=== PATIENT | female | born 1955 | race Caucasian/White ===

== ENCOUNTER 2022-09-25 00:55 | Inpatient (IN) | payer BC, OTHER ==
[~2022-09-25] VITALS: Ht 157.5 cm; Wt 64.0 kg
[2022-09-25 03:30] LABS: BASOPHILS % 0.9 % (0.0-2.0); EOSINOPHILS % 2.5 % (0.0-5.0); HEMATOCRIT. 37.1 % (36.0-48.0); HEMOGLOBIN. 11.8 g/dL (12.0-16.0); LYMPHOCYTES % 25.7 % (20.0-50.0); MEAN CORPUSCULAR HEMOGLOBIN 20.6 pg (28.0-32.0); MEAN CORPUSCULAR VOLUME 64.6 fL (81.0-99.0); MEAN PLATELET VOLUME 10.1 fl (7.4-10.4); MONOCYTES % 8.4 % (2.0-8.0); NEUTROPHILS % 62.5 % (40.0-76.0); PLATELET 208 x1000/uL (130-400); RED BLOOD CELL COUNT 5.75 mill/uL (4.2-5.4); RED CELL DISTRIBUTION WIDTH 16.5 % (11.6-14.6)
[2022-09-25 03:34] LABS: CHLORIDE 110 mEq/L (98-107)
[2022-09-25 03:35] LABS: PLATELET ESTIMATE NORMAL
[2022-09-25] MEDS ORDERED: ASPIRIN 325MG EC TABLET PO ONE (04:00)
[2022-09-25] MEDS ORDERED: ACETAMINOPHEN 325MG TABLET PO PRN ×2 (06:00)
[2022-09-25] MEDS ORDERED: ASPIRIN 325MG EC TABLET PO NR (06:00)
[2022-09-25] MEDS ORDERED: ONDANSETRON HCL 4MG/2ML INJ IV PRN (06:00)
[2022-09-25] MEDS ORDERED: IPRATROPIUM/ALBUTEROL 0.5-3(2.5)MG/3ML NEB NEB PRN (06:00)
[2022-09-25] MEDS ORDERED: DOCUSATE SODIUM 100MG CAPSULE PO PRN (06:00)
[2022-09-25] MEDS ORDERED: MAGNESIUM/ALUMINUM HYDROXIDE/SIMETHICONE 30ML UDC PO PRN (06:00)
[2022-09-25] MEDS ORDERED: CLONIDINE 0.1MG TABLET PO PRN (06:00)
[2022-09-25] MEDS ORDERED: NITROGLYCERIN 0.4MG TABLET SL SL PRN (06:15)
[2022-09-25] MEDS: LEVOTHYROXINE SODIUM 50MCG TABLET PO SCH ×2 (06:46→07:50)
[2022-09-25 08:19] LABS: TOTAL IRON BINDING CAPACITY 343 ug/dL (250-450)
[2022-09-25 08:31] LABS: PHOSPHORUS 4.2 mg/dL (2.5-4.9)
[2022-09-25 08:52] LABS: CREATINE KINASE MB FRACTION 1.1 ng/mL (0.5-3.6)
[2022-09-25] MEDS: PANTOPRAZOLE SODIUM 40 MG/VIAL IV SCH (09:00)
[2022-09-25] MEDS: ENOXAPARIN 40MG/0.4ML SYR SUBCUT SCH (09:00)
[2022-09-25] MEDS: AMLODIPINE 5MG TABLET PO SCH (09:00)
[2022-09-25 09:28] LABS: T4 FREE 0.97 ng/dL (0.76-1.46)
[2022-09-25 11:30] VITALS: BP 136/54
[2022-09-25 11:51] LABS: FERRITIN 140 ng/mL (10-291)
[2022-09-25 12:00] VITALS: BP 136/54
[2022-09-25 13:51] LABS: VITAMIN B12 SERUM 446 pg/mL (211-911)
[2022-09-25] MEDS ORDERED: ATOR10TA69 MT (13:59)
[2022-09-25] MEDS ORDERED: LEVO50TA8 MT (13:59)
[2022-09-25 16:00] VITALS: BP 117/59
[2022-09-25 17:17] LABS: CREATINE KINASE MB FRACTION 1.1 ng/mL (0.5-3.6)
[2022-09-25 20:00] VITALS: BP 112/53
[2022-09-25 20:56] LABS: CLARITY URINE CLEAR (CLEAR); COLOR URINE YELLOW (YELLOW); KETONES URINE NEGATIVE (NEGATIVE); LEUKOCYTE ESTERASE URINE 2+ (NEGATIVE); NITRITE URINE NEGATIVE (NEGATIVE); OCCULT BLOOD URINE NEGATIVE (NEGATIVE); PH URINE 7.5 (4.5-8.0); PROTEIN URINE NEGATIVE (NEGATIVE); SPECIFIC GRAVITY URINE 1.004 (1.005-1.030); UROBILINOGEN URINE 0.2 E.U./dL (0.2-1.0)
[2022-09-25] MEDS ORDERED: ATORVASTATIN CALCIUM 40MG TABLET PO SCH (21:00)
[2022-09-25 21:08] LABS: *AMPHETAMINES SCREEN URINE NEGATIVE (NEGATIVE); *BARBITURATES SCREEN URINE NEGATIVE (NEGATIVE); *BENZODIAZEPINES SCREEN URINE NEGATIVE (NEGATIVE); *COCAINE SCREEN URINE NEGATIVE (NEGATIVE); CANNABINOID URINE SCREEN NEGATIVE (NEGATIVE); METHADONE URINE SCREEN NEGATIVE (NEGATIVE); OPIATES URINE SCREEN NEGATIVE (NEGATIVE); PHENCYCLIDINE URINE SCREEN NEGATIVE (NEGATIVE)
[2022-09-26] VITALS: BP 104/48
[2022-09-26 04:00] VITALS: BP 97/56
[2022-09-26] MEDS: LEVOTHYROXINE SODIUM 50MCG TABLET PO SCH (06:19)
[2022-09-26 08:00] VITALS: BP 124/78
[2022-09-26] MEDS ORDERED: ASPIRIN 81MG EC TABLET PO SCH (09:00)
[2022-09-26] MEDS: PANTOPRAZOLE SODIUM 40 MG/VIAL IV SCH (09:03)
[2022-09-26] MEDS: AMLODIPINE 5MG TABLET PO SCH (09:03)
[2022-09-26] MEDS: ENOXAPARIN 40MG/0.4ML SYR SUBCUT SCH (09:03)
[2022-09-26 10:43] VITALS: BP 124/70
== END 2022-09-26 15:34 | disposition home or self-care (01) | DRG 880 ==
LOC: ER 00:55 → 7WST 05:01
PROVIDERS: ADMIT Hospitalist; ATTEND Hospitalist
DX: F41.9 Anxiety disorder, unspecified (principal); K21.9 Gastro-esophageal reflux disease without esophagitis; E03.9 Hypothyroidism, unspecified; D50.9 Iron deficiency anemia, unspecified; I10 Essential (primary) hypertension; E78.00 Pure hypercholesterolemia, unspecified; G47.00 Insomnia, unspecified; Z79.82 Long term (current) use of aspirin; Z79.899 Other long term (current) drug therapy
CPT/HCPCS: 36415; 71045; 80048; 80061; 80305; 81003; 82550; 82553; 82607; 82728; 82746; 83036; 83540; 83550; 83735; 84100; 84439; 84443; 84484; 85025; 93005; 93306; 99285; C9113; J1650